=== PATIENT | female | born 1970 | race Caucasian/White ===

== ENCOUNTER 2016-09-10 13:29 | Inpatient (IN) | payer OTHER ==
--- NOTE | 2016-09-10 14:25 | PROVIDER DOCUMENTATION ---
HPI-Respiratory General - General Source: patient, family, EMS - History of Present Illness-Resp Quality of Pain: reports: none Severity in ED: reports: moderate Onset/Duration: reports: 3 days ago Timing: reports: still present Cough Quality/Degree: reports: no cough Episode Frequency: occasional episodes Current Respiratory Medication Therapy: Initiated see nurses note Modifying Factors: improves with: nothing Associated Symptoms: reports: shortness of breath. denies: cough Similar Symptoms Previously?: No Recently seen or treated by another doctor?: Yes <Malvin Campos - Last Filed: 09/10/16 17:26> <Idalia Blancas - Last Filed: 09/10/16 18:13> - General Chief Complaint: Shortness of Breath Stated Complaint: SOB, sore throat Time Seen by Provider: 09/10/16 13:56 Allergies/Adverse Reactions: Patient Allergies Allergy/AdvReac Type Severity Reaction Status Date / Time clarithromycin [From Biaxin] AdvReac RASH Verified 09/10/16 13:48 meloxicam AdvReac Unknown Verified 09/10/16 13:48 Sulfa (Sulfonamide AdvReac RASH Verified 09/10/16 13:48 Antibiotics) Home Medications: Home Medication List Medication Instructions Recorded Confirmed Last Taken Type Albuterol [Albuterol Neb] 2.5 mg INH [id number] PRN 04/29/16 09/10/16 05/28/16 21: 00 History 2.5 MG Aspirin [Aspir-Low] 81 mg PO DAILY 04/29/16 09/10/16 09/10/16 History Carbamazepine 400 mg PO BID 04/29/16 09/10/16 09/10/16 History Cholecalciferol (Vit D3) [Vitamin 1 cap PO DAILY 04/29/16 09/10/16 09/10/16 History D] Citalopram Hydrobromide 20 mg PO DAILY 04/29/16 09/10/16 09/10/16 History [Citalopram HBr] Diazepam 5 mg PO QHS 04/29/16 09/10/16 09/09/16 History Divalproex Sodium [Depakote ER] 2 tab PO BID 04/29/16 09/10/16 09/10/16 History Fluticasone 50 Mcg Nasal [place] 1 - 2 spray PIOTR DAILY 04/29/16 09/10/16 09/10/16 History [Flonase] LISINOpril [Prinivil] 5 mg PO DAILY 04/29/16 09/10/16 09/10/16 History Metformin HCl [Fortamet] 500 mg PO DAILY 04/29/16 09/10/16 09/10/16 History Montelukast Sodium 1 tab PO DAILY 04/29/16 09/10/16 09/10/16 History Omeprazole 40 mg PO DAILY 04/29/16 09/10/16 09/10/16 History Amlodipine [Norvasc] 5 mg PO DAILY #30 tablet 05/31/16 09/10/16 09/10/16 Rx Levothyroxine [Synthroid] 25 microgm PO DAILY@0700 #30 tablet 05/31/16 09/10/16 09/10/16 Rx Polyethylene Glycol 3350 [Miralax] 17 gm PO DAILY 05/31/16 09/10/16 09/10/16 History Sucralfate [Carafate Liquid] 1 gm PO Q6H #14 oz 05/31/16 09/10/16 09/10/16 Rx Simvastatin 20 mg PO HS 09/10/16 09/10/16 09/08/16 20:00 History - History of Present Illness-Resp Nature of Presenting Problem: Pt is a 45 yof with mild MR that is able to answer some questions appropriately no help from family.Family is at bedside and reports that pt has been sob x 2-3 days. Reports that pt has dyspnea on exertion and that her o2 sat drops. pt has never been diagnosed with asthma or copd but takes daily breathing treatments. pt has a 1 inch in diameter spot on her lung that is being followed by her doctor. Hx of bronchitis and pneumonia. Family also reports pt has dysuria upon urination. (Malvin Campos) Review of Systems - Adult - REVIEW OF SYSTEMS - ADULT Constitutional: denies: chills, fever, fatique Eyes: reports: no symptoms reported Ears, Nose, Mouth & Throat: reports: no symptoms reported Cardiovascular: denies: chest pain, irregular heart rate, poor circulation, PND , syncope Respiratory: reports: dyspnea on exertion, shortness of breath. denies: cough, pleurisy Gastrointestinal: denies: abdominal pain, diarrhea, nausea, vomiting Genitourinary: reports: dysuria. denies: flank pain, frequent UTI's, hematuria Musculoskeletal: reports: no symptoms reported Integumentary: reports: no symptoms reported Neurological: reports: no symptoms reported Psychiatric: reports: no symptoms reported Endocrine: reports: no symptoms reported Hematologic/Lymphatic: reports: no symptoms reported Allergic/Immunologic: reports: no symptoms reported All Other Systems: Reviewed and Negative <Malvin Campos - Last Filed: 09/10/16 17:26> Past History - Adult - PAST MEDICAL HISTORY-ADULT Review of Records: reports: Nursing Assessment Review, Medications Reviewed Major Childhood Illnesses: reports: denies history Cardiovascular: reports: HTN Respiratory: reports: asthma Gastrointestinal: reports: GERD Obstetrical/Gynecological: reports: denies history Genitourinary: reports: denies history Musculoskeletal: reports: denies history Neurological: reports: denies history Endocrine/Immune: reports: Diabetes, thyroid disorder (hypo) Other Conditions: reports: denies history - IMMUNIZATION STATUS Childhood Immunizations: See Nurse Assessment Flu Vaccine: See Nurse Assessment - FAMILY HISTORY Family History: reviewed, not pertinent - SOCIAL HISTORY Smoking: denies Substance Use: none/never Alcohol Use Frequency: never <Malvin Campos - Last Filed: 09/10/16 17:26> Physical Exam-General - PHYSICAL EXAM-ADULT Initial Vital Signs Reviewed: Yes - CONSTITUTIONAL General Appearance: appears well, alert, no apparent distress - EYES Eyes: PERRL/EOMI - HEAD, EARS, NOSE, MOUTH & THROAT HENMT: moist mucous membranes, normal ENT inspection, TMs normal, pharynx normal - RESPIRATORY Respiratory: chest non-tender, lungs clear, normal breath sounds, no pleuratic chest pain, no respiratory distress, no accessory muscle use - CARDIOVASCULAR Cardiovascular: regular rate, rhythm, systolic murmur - GASTROINTESTINAL (ABDOMEN) Abdominal Exam: normal bowel sounds, non tender, soft, no organomegaly, no pulsatile mass - LYMPHATIC Lymphatic: no adenopathy - MUSCULOSKELETAL Back Exam: normal inspection, no CVA tenderness, no vertebral tenderness Extremity: normal range of motion, non-tender, normal gait - SKIN Integumentary: normal color, normal turgor, warm/dry - PSYCHIATRIC Psych/Mental Status: normal mood/affect, normal thought content, normal thought process, oriented x 3 <Malvin Campos - Last Filed: 09/10/16 17:26> Progress - EKG 1 Time of EKG reading by physician:: 15:02 EKG Read and Signed by:: Ivan Lundberg EKG Interpretation (*Must complete 3 of following elements*): Abnormal (T wave abnormality consider Anterior ischemia) Rate: 84 Rhythm: nsr [place]: normal QRS: RBB (incomplete) 2 Time of EKG reading by physician:: 17:03 EKG Read and Signed by:: Ivan Lundberg EKG Interpretation (*Must complete 3 of following elements*): Abnormal Rate: 84 Rhythm: nsr [place]: normal QRS: RBB (incomplete) AR Interval: normal <CamposMalvin - Last Filed: 09/10/16 17:26> - XRAY 1 XRAY Study: other (neck) Impression: See EMR Report (Questionable minimal precervical soft tissue swelling. If clinical suspicion persists a CT of the neck with contrast is recommended. -per Dr. Mendoza) 2 XRAY Study: Chest Impression: See EMR Report (No change, per Dr. Mendoza) - CT/MRI 1 CT Study: Neck Impression: See EMR Report (1. Airway is patent. No soft tissue mass or fluid collection seen. 2. No adenopathy. 3. Heterogeneous thyroid with mildly prominent left lobe and a 1.5 cm calcified dominant nodule on the left. -per Dr. Russell) - CONSULTS/PCP/HOSPITALIST Notification #1 *Consult/PCP/Hospitalist*: Dr. Jimenez Time Discussed: 17:30 Reason/Comments: hyperkalemia, elevated troponin Consult Disposition: other (She doesn't meet criteria to transfer to ; admit here and treat hyperkalemia.) #2 Consult: Dr. Jorge Time Discussed: 18:00 Reason/Comments: hyperkalemia, elevated troponin Consult Disposition: Admit <Idalia Blancas - Last Filed: 09/10/16 18:13> - PLAN OF CARE/RESULTS Progress/Plan/Lab Results: Orders Category Date Time Status CHEST-2 VIEWS [RAD] Stat Exams 09/10/16 14:04 Ordered NECK AP AND/OR LAT SOFT TISSUE [RAD] Stat Exams 09/10/16 14:18 Ordered CBC WITH ELECTRONIC DIFF [HEME] Stat Lab 09/10/16 14:04 Uncollected CK PROFILE [SP CHEM] Stat Lab 09/10/16 14:04 Uncollected COMPREHENSIVE METABOLIC PANEL [CHEM] Stat Lab 09/10/16 14:04 Uncollected D-DIMER [CHEM] Stat Lab 09/10/16 14:04 Uncollected MAGNESIUM [CHEM] Stat Lab 09/10/16 14:04 Uncollected PRO B-NATRIURETIC PEPTIDE Stat Lab 09/10/16 14:04 Uncollected PROTIME WITH INR [COAG] Stat Lab 09/10/16 14:04 Uncollected PTT [COAG] Stat Lab 09/10/16 14:04 Uncollected TROPONIN T Stat Lab 09/10/16 14:04 Uncollected URINALYSIS W/POSS RFLX CULT [URINALYSIS] Stat Lab 09/10/16 14:13 Uncollected EKG [EKG] Stat Ther 09/10/16 14:04 Ordered Vital Signs - 24 hr 09/10/16 13:34 Temperature 98.2 F Pulse Rate 98 H Respiratory 18 Rate Blood Pressure 149/77 O2 Sat by Pulse 98 Oximetry Laboratory Tests 09/10/16 09/10/16 09/10/16 14:43 14:43 14:43 WBC 4.52 L RBC 3.53 L Hgb 11.3 L Hct 35.5 L MCV 100.6 H MCH 32.0 H MCHC 31.8 L RDW Std Deviation 12.0 Plt Count 267 MPV 10.8 H Immature Gran % (Auto) 0.0 Neut % (Auto) 47.4 Lymph % (Auto) 40.9 [place] % (Auto) 11.1 H Eos % (Auto) 0.4 Baso % (Auto) 0.2 Immature Gran # (Auto) 0.00 Neut # (Auto) 2.14 Lymph # (Auto) 1.85 [place] # (Auto) 0.50 Eos # (Auto) 0.02 Baso # (Auto) 0.01 PT INR PTT (Actin FS) D-Dimer 0.11 Specimen Type Sample Site pH pCO2 pO2 HCO3 Base Excess Oxyhemoglobin ABG O2 Sat (Calculated) ABG O2 Saturation ABG Carboxyhemoglobin ABG Methemoglobin Ryan Test A-a O2 Difference Total Hemoglobin Lactate Liter Flow Blood Gas Modality FiO2 % Sodium 138 Potassium 5.8 H Chloride 95 L Carbon Dioxide 32 Anion Gap 11 BUN 38 H Creatinine 0.7 Estimated GFR/1.73 m2 > 60 BUN/Creatinine Ratio 54 Glucose 98 Calculated Osmolality 285 Calcium 9.6 Magnesium 2.1 Total Bilirubin 0.11 L AST 15 ALT 10 Alkaline Phosphatase 58 Creatine Kinase 65 Troponin T Fke-O-Ihhosrhhtyr Pept Total Protein 6.7 Albumin 3.9 Globulin 2.8 Albumin/Globulin Ratio 1.4 Urine Source Urine Color Urine Turbidity Urine pH Ur Specific [place] Urine Protein Ur Glucose (Stick) Ur Ketones (Stick) Urine Blood Urine Nitrite Urine Bilirubin Urobilinogen Dipstick Urine Leukocytes Urine WBC (Auto) Urine RBC (Auto) U Epithel Cells (Auto) Urine Bacteria (Auto) 09/10/16 09/10/16 09/10/16 14:43 14:43 14:43 WBC RBC Hgb Hct MCV MCH MCHC RDW Std Deviation Plt Count MPV Immature Gran % (Auto) Neut % (Auto) Lymph % (Auto) [place] % (Auto) Eos % (Auto) Baso % (Auto) Immature Gran # (Auto) Neut # (Auto) Lymph # (Auto) [place] # (Auto) Eos # (Auto) Baso # (Auto) PT 9.6 INR 0.91 PTT (Actin FS) 23.5 D-Dimer Specimen Type Sample Site pH pCO2 pO2 HCO3 Base Excess Oxyhemoglobin ABG O2 Sat (Calculated) ABG O2 Saturation ABG Carboxyhemoglobin ABG Methemoglobin Ryan Test A-a O2 Difference Total Hemoglobin Lactate Liter Flow Blood Gas Modality FiO2 % Sodium Potassium Chloride Carbon Dioxide Anion Gap BUN Creatinine Estimated GFR/1.73 m2 BUN/Creatinine Ratio Glucose Calculated Osmolality Calcium Magnesium Total Bilirubin AST ALT Alkaline Phosphatase Creatine Kinase Troponin T 0.165 H Zbv-A-Tvyxwvpqvib Pept 85 Total Protein Albumin Globulin Albumin/Globulin Ratio Urine Source Urine Color Urine Turbidity Urine pH Ur Specific [place] Urine Protein Ur Glucose (Stick) Ur Ketones (Stick) Urine Blood Urine Nitrite Urine Bilirubin Urobilinogen Dipstick Urine Leukocytes Urine WBC (Auto) Urine RBC (Auto) U Epithel Cells (Auto) Urine Bacteria (Auto) 09/10/16 09/10/16 09/10/16 15:13 16:10 16:10 WBC RBC Hgb Hct MCV MCH MCHC RDW Std Deviation Plt Count MPV Immature Gran % (Auto) Neut % (Auto) Lymph % (Auto) [place] % (Auto) Eos % (Auto) Baso % (Auto) Immature Gran # (Auto) Neut # (Auto) Lymph # (Auto) [place] # (Auto) Eos # (Auto) Baso # (Auto) PT INR PTT (Actin FS) D-Dimer Specimen Type Sample Site pH pCO2 pO2 HCO3 Base Excess Oxyhemoglobin ABG O2 Sat (Calculated) ABG O2 Saturation ABG Carboxyhemoglobin ABG Methemoglobin Ryan Test A-a O2 Difference Total Hemoglobin Lactate Liter Flow Blood Gas Modality FiO2 % Sodium Potassium Chloride Carbon Dioxide Anion Gap BUN Creatinine Estimated GFR/1.73 m2 BUN/Creatinine Ratio Glucose Calculated Osmolality Calcium Magnesium Total Bilirubin AST ALT Alkaline Phosphatase Creatine Kinase 69 Troponin T 0.306 H* D Kfw-B-Huicysjerxp Pept Total Protein Albumin Globulin Albumin/Globulin Ratio Urine Source CLEAN CATCH Urine Color YELLOW Urine Turbidity CLEAR Urine pH 7.0 Ur Specific [place] 1.008 Urine Protein 70 A Ur Glucose (Stick) NEGATIVE Ur Ketones (Stick) NEGATIVE Urine Blood NEGATIVE Urine Nitrite NEGATIVE Urine Bilirubin NEGATIVE Urobilinogen Dipstick NORMAL Urine Leukocytes NEGATIVE Urine WBC (Auto) <10 Urine RBC (Auto) <10 U Epithel Cells (Auto) <10 Urine Bacteria (Auto) NEGATIVE 09/10/16 16:34 WBC RBC Hgb Hct MCV MCH MCHC RDW Std Deviation Plt Count MPV Immature Gran % (Auto) Neut % (Auto) Lymph % (Auto) [place] % (Auto) Eos % (Auto) Baso % (Auto) Immature Gran # (Auto) Neut # (Auto) Lymph # (Auto) [place] # (Auto) Eos # (Auto) Baso # (Auto) PT INR PTT (Actin FS) D-Dimer Specimen Type ARTERIAL Sample Site R RADIAL pH 7.37 pCO2 62 H* pO2 82 HCO3 31.8 H Base Excess 8.8 H Oxyhemoglobin 95.0 ABG O2 Sat (Calculated) 14.3 L ABG O2 Saturation 97.9 ABG Carboxyhemoglobin 1.60 ABG Methemoglobin 1.4 Ryan Test YES A-a O2 Difference 40.0 Total Hemoglobin 10.6 L Lactate 1.40 Liter Flow 2.0 Blood Gas Modality [place] FiO2 % 28.0 Sodium Potassium Chloride Carbon Dioxide Anion Gap BUN Creatinine Estimated GFR/1.73 m2 BUN/Creatinine Ratio Glucose Calculated Osmolality Calcium Magnesium Total Bilirubin AST ALT Alkaline Phosphatase Creatine Kinase Troponin T Fag-C-Dviwlllozxm Pept Total Protein Albumin Globulin Albumin/Globulin Ratio Urine Source Urine Color Urine Turbidity Urine pH Ur Specific [place] Urine Protein Ur Glucose (Stick) Ur Ketones (Stick) Urine Blood Urine Nitrite Urine Bilirubin Urobilinogen Dipstick Urine Leukocytes Urine WBC (Auto) Urine RBC (Auto) U Epithel Cells (Auto) Urine Bacteria (Auto) Laboratory Tests 09/10/16 09/10/16 09/10/16 14:43 14:43 14:43 WBC 4.52 L RBC 3.53 L Hgb 11.3 L Hct 35.5 L MCV 100.6 H MCH 32.0 H MCHC 31.8 L RDW Std Deviation 12.0 Plt Count 267 MPV 10.8 H Immature Gran % (Auto) 0.0 Neut % (Auto) 47.4 Lymph % (Auto) 40.9 [place] % (Auto) 11.1 H Eos % (Auto) 0.4 Baso % (Auto) 0.2 Immature Gran # (Auto) 0.00 Neut # (Auto) 2.14 Lymph # (Auto) 1.85 [place] # (Auto) 0.50 Eos # (Auto) 0.02 Baso # (Auto) 0.01 PT INR PTT (Actin FS) D-Dimer 0.11 Specimen Type Sample Site pH pCO2 pO2 HCO3 Base Excess Oxyhemoglobin ABG O2 Sat (Calculated) ABG O2 Saturation ABG Carboxyhemoglobin ABG Methemoglobin Ryan Test A-a O2 Difference Total Hemoglobin Lactate Liter Flow Blood Gas Modality FiO2 % Sodium 138 Potassium 5.8 H Chloride 95 L Carbon Dioxide 32 Anion Gap 11 BUN 38 H Creatinine 0.7 Estimated GFR/1.73 m2 > 60 BUN/Creatinine Ratio 54 Glucose 98 Calculated Osmolality 285 Calcium 9.6 Magnesium 2.1 Total Bilirubin 0.11 L AST 15 ALT 10 Alkaline Phosphatase 58 Creatine Kinase 65 Troponin T Afd-Z-Fclyotdarms Pept Total Protein 6.7 Albumin 3.9 Globulin 2.8 Albumin/Globulin Ratio 1.4 Urine Source Urine Color Urine Turbidity Urine pH Ur Specific [place] Urine Protein Ur Glucose (Stick) Ur Ketones (Stick) Urine Blood Urine Nitrite Urine Bilirubin Urobilinogen Dipstick Urine Leukocytes Urine WBC (Auto) Urine RBC (Auto) U Epithel Cells (Auto) Urine Bacteria (Auto) 09/10/16 09/10/16 09/10/16 14:43 14:43 14:43 WBC RBC Hgb Hct MCV MCH MCHC RDW Std Deviation Plt Count MPV Immature Gran % (Auto) Neut % (Auto) Lymph % (Auto) [place] % (Auto) Eos % (Auto) Baso % (Auto) Immature Gran # (Auto) Neut # (Auto) Lymph # (Auto) [place] # (Auto) Eos # (Auto) Baso # (Auto) PT 9.6 INR 0.91 PTT (Actin FS) 23.5 D-Dimer Specimen Type Sample Site pH pCO2 pO2 HCO3 Base Excess Oxyhemoglobin ABG O2 Sat (Calculated) ABG O2 Saturation ABG Carboxyhemoglobin ABG Methemoglobin Ryan Test A-a O2 Difference Total Hemoglobin Lactate Liter Flow Blood Gas Modality FiO2 % Sodium Potassium Chloride Carbon Dioxide Anion Gap BUN Creatinine Estimated GFR/1.73 m2 BUN/Creatinine Ratio Glucose Calculated Osmolality Calcium Magnesium Total Bilirubin AST ALT Alkaline Phosphatase Creatine Kinase Troponin T 0.165 H Rdd-X-Sygqpcniuwi Pept 85 Total Protein Albumin Globulin Albumin/Globulin Ratio Urine Source Urine Color Urine Turbidity Urine pH Ur Specific [place] Urine Protein Ur Glucose (Stick) Ur Ketones (Stick) Urine Blood Urine Nitrite Urine Bilirubin Urobilinogen Dipstick Urine Leukocytes Urine WBC (Auto) Urine RBC (Auto) U Epithel Cells (Auto) Urine Bacteria (Auto) 09/10/16 09/10/16 09/10/16 15:13 16:10 16:10 WBC RBC Hgb Hct MCV MCH MCHC RDW Std Deviation Plt Count MPV Immature Gran % (Auto) Neut % (Auto) Lymph % (Auto) [place] % (Auto) Eos % (Auto) Baso % (Auto) Immature Gran # (Auto) Neut # (Auto) Lymph # (Auto) [place] # (Auto) Eos # (Auto) Baso # (Auto) PT INR PTT (Actin FS) D-Dimer Specimen Type Sample Site pH pCO2 pO2 HCO3 Base Excess Oxyhemoglobin ABG O2 Sat (Calculated) ABG O2 Saturation ABG Carboxyhemoglobin ABG Methemoglobin Ryan Test A-a O2 Difference Total Hemoglobin Lactate Liter Flow Blood Gas Modality FiO2 % Sodium Potassium 6.2 H* Chloride Carbon Dioxide Anion Gap BUN Creatinine Estimated GFR/1.73 m2 BUN/Creatinine Ratio Glucose Calculated Osmolality Calcium Magnesium Total Bilirubin AST ALT Alkaline Phosphatase Creatine Kinase 69 Troponin T 0.306 H* D Pwl-P-Cwpejydemcd Pept Total Protein Albumin Globulin Albumin/Globulin Ratio Urine Source CLEAN CATCH Urine Color YELLOW Urine Turbidity CLEAR Urine pH 7.0 Ur Specific [place] 1.008 Urine Protein 70 A Ur Glucose (Stick) NEGATIVE Ur Ketones (Stick) NEGATIVE Urine Blood NEGATIVE Urine Nitrite NEGATIVE Urine Bilirubin NEGATIVE Urobilinogen Dipstick NORMAL Urine Leukocytes NEGATIVE Urine WBC (Auto) <10 Urine RBC (Auto) <10 U Epithel Cells (Auto) <10 Urine Bacteria (Auto) NEGATIVE 09/10/16 16:34 WBC RBC Hgb Hct MCV MCH MCHC RDW Std Deviation Plt Count MPV Immature Gran % (Auto) Neut % (Auto) Lymph % (Auto) [place] % (Auto) Eos % (Auto) Baso % (Auto) Immature Gran # (Auto) Neut # (Auto) Lymph # (Auto) [place] # (Auto) Eos # (Auto) Baso # (Auto) PT INR PTT (Actin FS) D-Dimer Specimen Type ARTERIAL Sample Site R RADIAL pH 7.37 pCO2 62 H* pO2 82 HCO3 31.8 H Base Excess 8.8 H Oxyhemoglobin 95.0 ABG O2 Sat (Calculated) 14.3 L ABG O2 Saturation 97.9 ABG Carboxyhemoglobin 1.60 ABG Methemoglobin 1.4 Ryan Test YES A-a O2 Difference 40.0 Total Hemoglobin 10.6 L Lactate 1.40 Liter Flow 2.0 Blood Gas Modality [place] FiO2 % 28.0 Sodium Potassium Chloride Carbon Dioxide Anion Gap BUN Creatinine Estimated GFR/1.73 m2 BUN/Creatinine Ratio Glucose Calculated Osmolality Calcium Magnesium Total Bilirubin AST ALT Alkaline Phosphatase Creatine Kinase Troponin T Jjf-D-Dzgsqhlztae Pept Total Protein Albumin Globulin Albumin/Globulin Ratio Urine Source Urine Color Urine Turbidity Urine pH Ur Specific [place] Urine Protein Ur Glucose (Stick) Ur Ketones (Stick) Urine Blood Urine Nitrite Urine Bilirubin Urobilinogen Dipstick Urine Leukocytes Urine WBC (Auto) Urine RBC (Auto) U Epithel Cells (Auto) Urine Bacteria (Auto) (Malvin Campos) Laboratory Tests 09/10/16 09/10/16 09/10/16 14:43 14:43 14:43 WBC 4.52 L RBC 3.53 L Hgb 11.3 L Hct 35.5 L MCV 100.6 H MCH 32.0 H MCHC 31.8 L RDW Std Deviation 12.0 Plt Count 267 MPV 10.8 H Immature Gran % (Auto) 0.0 Neut % (Auto) 47.4 Lymph % (Auto) 40.9 [place] % (Auto) 11.1 H Eos % (Auto) 0.4 Baso % (Auto) 0.2 Immature Gran # (Auto) 0.00 Neut # (Auto) 2.14 Lymph # (Auto) 1.85 [place] # (Auto) 0.50 Eos # (Auto) 0.02 Baso # (Auto) 0.01 PT INR PTT (Actin FS) D-Dimer 0.11 Specimen Type Sample Site pH pCO2 pO2 HCO3 Base Excess Oxyhemoglobin ABG O2 Sat (Calculated) ABG O2 Saturation ABG Carboxyhemoglobin ABG Methemoglobin Ryan Test A-a O2 Difference Total Hemoglobin Lactate Liter Flow Blood Gas Modality FiO2 % Sodium 138 Potassium 5.8 H Chloride 95 L Carbon Dioxide 32 Anion Gap 11 BUN 38 H Creatinine 0.7 Estimated GFR/1.73 m2 > 60 BUN/Creatinine Ratio 54 Glucose 98 Calculated Osmolality 285 Calcium 9.6 Magnesium 2.1 Total Bilirubin 0.11 L AST 15 ALT 10 Alkaline Phosphatase 58 Creatine Kinase 65 Troponin T Ugx-N-Msyzplnbdqi Pept Total Protein 6.7 Albumin 3.9 Globulin 2.8 Albumin/Globulin Ratio 1.4 Urine Source Urine Color Urine Turbidity Urine pH Ur Specific [place] Urine Protein Ur Glucose (Stick) Ur Ketones (Stick) Urine Blood Urine Nitrite Urine Bilirubin Urobilinogen Dipstick Urine Leukocytes Urine WBC (Auto) Urine RBC (Auto) U Epithel Cells (Auto) Urine Bacteria (Auto) 09/10/16 09/10/16 09/10/16 14:43 14:43 14:43 WBC RBC Hgb Hct MCV MCH MCHC RDW Std Deviation Plt Count MPV Immature Gran % (Auto) Neut % (Auto) Lymph % (Auto) [place] % (Auto) Eos % (Auto) Baso % (Auto) Immature Gran # (Auto) Neut # (Auto) Lymph # (Auto) [place] # (Auto) Eos # (Auto) Baso # (Auto) PT 9.6 INR 0.91 PTT (Actin FS) 23.5 D-Dimer Specimen Type Sample Site pH pCO2 pO2 HCO3 Base Excess Oxyhemoglobin ABG O2 Sat (Calculated) ABG O2 Saturation ABG Carboxyhemoglobin ABG Methemoglobin Ryan Test A-a O2 Difference Total Hemoglobin Lactate Liter Flow Blood Gas Modality FiO2 % Sodium Potassium Chloride Carbon Dioxide Anion Gap BUN Creatinine Estimated GFR/1.73 m2 BUN/Creatinine Ratio Glucose Calculated Osmolality Calcium Magnesium Total Bilirubin AST ALT Alkaline Phosphatase Creatine Kinase Troponin T 0.165 H Eee-V-Jykgwrxlvml Pept 85 Total Protein Albumin Globulin Albumin/Globulin Ratio Urine Source Urine Color Urine Turbidity Urine pH Ur Specific [place] Urine Protein Ur Glucose (Stick) Ur Ketones (Stick) Urine Blood Urine Nitrite Urine Bilirubin Urobilinogen Dipstick Urine Leukocytes Urine WBC (Auto) Urine RBC (Auto) U Epithel Cells (Auto) Urine Bacteria (Auto) 09/10/16 09/10/16 09/10/16 15:13 16:10 16:10 WBC RBC Hgb Hct MCV MCH MCHC RDW Std Deviation Plt Count MPV Immature Gran % (Auto) Neut % (Auto) Lymph % (Auto) [place] % (Auto) Eos % (Auto) Baso % (Auto) Immature Gran # (Auto) Neut # (Auto) Lymph # (Auto) [place] # (Auto) Eos # (Auto) Baso # (Auto) PT INR PTT (Actin FS) D-Dimer Specimen Type Sample Site pH pCO2 pO2 HCO3 Base Excess Oxyhemoglobin ABG O2 Sat (Calculated) ABG O2 Saturation ABG Carboxyhemoglobin ABG Methemoglobin Ryan Test A-a O2 Difference Total Hemoglobin Lactate Liter Flow Blood Gas Modality FiO2 % Sodium Potassium 6.2 H* Chloride Carbon Dioxide Anion Gap BUN Creatinine Estimated GFR/1.73 m2 BUN/Creatinine Ratio Glucose Calculated Osmolality Calcium Magnesium Total Bilirubin AST ALT Alkaline Phosphatase Creatine Kinase 69 Troponin T 0.306 H* D Cgw-L-Dyocqfadapx Pept Total Protein Albumin Globulin Albumin/Globulin Ratio Urine Source CLEAN CATCH Urine Color YELLOW Urine Turbidity CLEAR Urine pH 7.0 Ur Specific [place] 1.008 Urine Protein 70 A Ur Glucose (Stick) NEGATIVE Ur Ketones (Stick) NEGATIVE Urine Blood NEGATIVE Urine Nitrite NEGATIVE Urine Bilirubin NEGATIVE Urobilinogen Dipstick NORMAL Urine Leukocytes NEGATIVE Urine WBC (Auto) <10 Urine RBC (Auto) <10 U Epithel Cells (Auto) <10 Urine Bacteria (Auto) NEGATIVE 09/10/16 16:34 WBC RBC Hgb Hct MCV MCH MCHC RDW Std Deviation Plt Count MPV Immature Gran % (Auto) Neut % (Auto) Lymph % (Auto) [place] % (Auto) Eos % (Auto) Baso % (Auto) Immature Gran # (Auto) Neut # (Auto) Lymph # (Auto) [place] # (Auto) Eos # (Auto) Baso # (Auto) PT INR PTT (Actin FS) D-Dimer Specimen Type ARTERIAL Sample Site R RADIAL pH 7.37 pCO2 62 H* pO2 82 HCO3 31.8 H Base Excess 8.8 H Oxyhemoglobin 95.0 ABG O2 Sat (Calculated) 14.3 L ABG O2 Saturation 97.9 ABG Carboxyhemoglobin 1.60 ABG Methemoglobin 1.4 Ryan Test YES A-a O2 Difference 40.0 Total Hemoglobin 10.6 L Lactate 1.40 Liter Flow 2.0 Blood Gas Modality [place] FiO2 % 28.0 Sodium Potassium Chloride Carbon Dioxide Anion Gap BUN Creatinine Estimated GFR/1.73 m2 BUN/Creatinine Ratio Glucose Calculated Osmolality Calcium Magnesium Total Bilirubin AST ALT Alkaline Phosphatase Creatine Kinase Troponin T Wni-D-Zwqdjeskmif Pept Total Protein Albumin Globulin Albumin/Globulin Ratio Urine Source Urine Color Urine Turbidity Urine pH Ur Specific [place] Urine Protein Ur Glucose (Stick) Ur Ketones (Stick) Urine Blood Urine Nitrite Urine Bilirubin Urobilinogen Dipstick Urine Leukocytes Urine WBC (Auto) Urine RBC (Auto) U Epithel Cells (Auto) Urine Bacteria (Auto) Orders Category Date Time Status Saline Loc NOW Care 09/10/16 15:56 Active CHEST-2 VIEWS [RAD] Stat Exams 09/10/16 14:04 Completed NECK AP AND/OR LAT SOFT TISSUE [RAD] Stat Exams 09/10/16 14:18 Completed NECK W/CONTRAST [CT] Stat Exams 09/10/16 15:56 Taken ABG [RESP] Routine Lab 09/10/16 16:34 Completed CBC WITH ELECTRONIC DIFF [HEME] Stat Lab 09/10/16 14:43 Completed CK PROFILE [SP CHEM] Stat Lab 09/10/16 14:43 Completed CK PROFILE [SP CHEM] Stat Lab 09/10/16 16:10 Completed COMPREHENSIVE METABOLIC PANEL [CHEM] Stat Lab 09/10/16 14:43 Completed D-DIMER [CHEM] Stat Lab 09/10/16 14:43 Completed MAGNESIUM [CHEM] Stat Lab 09/10/16 14:43 Completed POTASSIUM [CHEM] Stat Lab 09/10/16 16:10 Completed PRO B-NATRIURETIC PEPTIDE Stat Lab 09/10/16 14:43 Completed PROTIME WITH INR [COAG] Stat Lab 09/10/16 14:43 Completed PTT [COAG] Stat Lab 09/10/16 14:43 Completed TROPONIN T Stat Lab 09/10/16 14:43 Completed TROPONIN T Stat Lab 09/10/16 16:10 Completed URINALYSIS W/POSS RFLX CULT [URINALYSIS] Stat Lab 09/10/16 15:13 Completed 0.9% Sodium Chloride Inj [Ns] 1,000 ml Med 09/10/16 15:56 Discontinued IV 999 mls/hr Albuterol 0.5% INH Conc [Albuterol 0.5% INH Conc For Med 09/10/16 17:08 Discontinued Hyperkalemia] 25 mg INH NOW ONE Aspirin Med 09/10/16 16:17 Discontinued 325 mg PO NOW ONE Sodium Polystyrene [Kayexalate] Med 09/10/16 17:08 Discontinued 15 gm PO NOW ONE Aerosol Treatments Routine Oth 09/10/16 17:08 Completed Aerosol Treatments Stat Oth 09/10/16 17:08 Completed EKG [EKG] Stat Ther 09/10/16 14:04 Draft EKG [EKG] Stat Ther 09/10/16 16:40 Ordered Vital Signs Temp Pulse Resp BP Pulse Ox 09/10/16 17:52 92 H 14 98 09/10/16 13:34 98.2 F 98 H 18 149/77 98 clarithromycin [From Biaxin] Adverse Reaction (Verified 09/10/16 13:48) RASH meloxicam Adverse Reaction (Verified 09/10/16 13:48) Unknown Sulfa (Sulfonamide Antibiotics) Adverse Reaction (Verified 09/10/16 13:48) RASH Albuterol [Albuterol Neb] 2.5 mg INH [id number] PRN 04/29/16 Aspirin [Aspir-Low] 81 mg PO DAILY 04/29/16 Carbamazepine 400 mg PO BID 04/29/16 Cholecalciferol (Vit D3) [Vitamin D] 1 cap PO DAILY 04/29/16 Citalopram Hydrobromide [Citalopram HBr] 20 mg PO DAILY 04/29/16 Diazepam 5 mg PO QHS 04/29/16 Divalproex Sodium [Depakote ER] 2 tab PO BID 04/29/16 Fluticasone 50 Mcg Nasal [place] [Flonase] 1 - 2 spray PIOTR DAILY 04/29/16 LISINOpril [Prinivil] 5 mg PO DAILY 04/29/16 Metformin HCl [Fortamet] 500 mg PO DAILY 04/29/16 Montelukast Sodium 1 tab PO DAILY 04/29/16 Omeprazole 40 mg PO DAILY 04/29/16 Amlodipine [Norvasc] 5 mg PO DAILY #30 tablet 05/31/16 Levothyroxine [Synthroid] 25 microgm PO DAILY@0700 #30 tablet 05/31/16 Polyethylene Glycol 3350 [Miralax] 17 gm PO DAILY 05/31/16 Sucralfate [Carafate Liquid] 1 gm PO Q6H #14 oz 05/31/16 Simvastatin 20 mg PO HS 09/10/16 I&O 09/09/16 09/10/16 09/11/16 06:59 06:59 06:59 Output Total 50 Balance -50 Laboratory 09/10/16 09/10/16 09/10/16 16:34 16:10 16:10 WBC RBC Hgb Hct MCV MCH MCHC RDW Std Deviation Plt Count MPV Immature Gran % (Auto) Neut % (Auto) Lymph % (Auto) [place] % (Auto) Eos % (Auto) Baso % (Auto) Immature Gran # (Auto) Neut # (Auto) Lymph # (Auto) [place] # (Auto) Eos # (Auto) Baso # (Auto) PT INR PTT (Actin FS) D-Dimer Specimen Type ARTERIAL Sample Site R RADIAL pH 7.37 pCO2 62 H* pO2 82 HCO3 31.8 H Base Excess 8.8 H Oxyhemoglobin 95.0 ABG O2 Sat (Calculated) 14.3 L ABG O2 Saturation 97.9 ABG Carboxyhemoglobin 1.60 ABG Methemoglobin 1.4 Ryan Test YES A-a O2 Difference 40.0 Total Hemoglobin 10.6 L Lactate 1.40 Liter Flow 2.0 Blood Gas Modality CANNULA FiO2 % 28.0 Sodium Potassium 6.2 H* Chloride Carbon Dioxide Anion Gap BUN Creatinine Estimated GFR/1.73 m2 BUN/Creatinine Ratio Glucose Calculated Osmolality Calcium Magnesium Total Bilirubin AST ALT Alkaline Phosphatase Creatine Kinase 69 Troponin T 0.306 H* D [id number] Pept Total Protein Albumin Globulin Albumin/Globulin Ratio Urine Source Urine Color Urine Turbidity Urine pH Ur Specific [place] Urine Protein Ur Glucose (Stick) Ur Ketones (Stick) Urine Blood Urine Nitrite Urine Bilirubin Urobilinogen Dipstick Urine Leukocytes Urine WBC (Auto) Urine RBC (Auto) U Epithel Cells (Auto) Urine Bacteria (Auto) 09/10/16 09/10/16 09/10/16 15:13 14:43 14:43 WBC RBC Hgb Hct MCV MCH MCHC RDW Std Deviation Plt Count MPV Immature Gran % (Auto) Neut % (Auto) Lymph % (Auto) [place] % (Auto) Eos % (Auto) Baso % (Auto) Immature Gran # (Auto) Neut # (Auto) Lymph # (Auto) [place] # (Auto) Eos # (Auto) Baso # (Auto) PT 9.6 INR 0.91 PTT (Actin FS) 23.5 D-Dimer Specimen Type Sample Site pH pCO2 pO2 HCO3 Base Excess Oxyhemoglobin ABG O2 Sat (Calculated) ABG O2 Saturation ABG Carboxyhemoglobin ABG Methemoglobin Ryan Test A-a O2 Difference Total Hemoglobin Lactate Liter Flow Blood Gas Modality FiO2 % Sodium Potassium Chloride Carbon Dioxide Anion Gap BUN Creatinine Estimated GFR/1.73 m2 BUN/Creatinine Ratio Glucose Calculated Osmolality Calcium Magnesium Total Bilirubin AST ALT Alkaline Phosphatase Creatine Kinase Troponin T 0.165 H [id number] Pept Total Protein Albumin Globulin Albumin/Globulin Ratio Urine Source CLEAN CATCH Urine Color YELLOW Urine Turbidity CLEAR Urine pH 7.0 Ur Specific [place] 1.008 Urine Protein 70 A Ur Glucose (Stick) NEGATIVE Ur Ketones (Stick) NEGATIVE Urine Blood NEGATIVE Urine Nitrite NEGATIVE Urine Bilirubin NEGATIVE Urobilinogen Dipstick NORMAL Urine Leukocytes NEGATIVE Urine WBC (Auto) <10 Urine RBC (Auto) <10 U Epithel Cells (Auto) <10 Urine Bacteria (Auto) NEGATIVE 09/10/16 09/10/16 09/10/16 14:43 14:43 14:43 WBC RBC Hgb Hct MCV MCH MCHC RDW Std Deviation Plt Count MPV Immature Gran % (Auto) Neut % (Auto) Lymph % (Auto) [place] % (Auto) Eos % (Auto) Baso % (Auto) Immature Gran # (Auto) Neut # (Auto) Lymph # (Auto) [place] # (Auto) Eos # (Auto) Baso # (Auto) PT INR PTT (Actin FS) D-Dimer 0.11 Specimen Type Sample Site pH pCO2 pO2 HCO3 Base Excess Oxyhemoglobin ABG O2 Sat (Calculated) ABG O2 Saturation ABG Carboxyhemoglobin ABG Methemoglobin Ryan Test A-a O2 Difference Total Hemoglobin Lactate Liter Flow Blood Gas Modality FiO2 % Sodium 138 Potassium 5.8 H Chloride 95 L Carbon Dioxide 32 Anion Gap 11 BUN 38 H Creatinine 0.7 Estimated GFR/1.73 m2 > 60 BUN/Creatinine Ratio 54 Glucose 98 Calculated Osmolality 285 Calcium 9.6 Magnesium 2.1 Total Bilirubin 0.11 L AST 15 ALT 10 Alkaline Phosphatase 58 Creatine Kinase 65 Troponin T [id number] Pept 85 Total Protein 6.7 Albumin 3.9 Globulin 2.8 Albumin/Globulin Ratio 1.4 Urine Source Urine Color Urine Turbidity Urine pH Ur Specific [place] Urine Protein Ur Glucose (Stick) Ur Ketones (Stick) Urine Blood Urine Nitrite Urine Bilirubin Urobilinogen Dipstick Urine Leukocytes Urine WBC (Auto) Urine RBC (Auto) U Epithel Cells (Auto) Urine Bacteria (Auto) 09/10/16 14:43 WBC 4.52 L RBC 3.53 L Hgb 11.3 L Hct 35.5 L MCV 100.6 H MCH 32.0 H MCHC 31.8 L RDW Std Deviation 12.0 Plt Count 267 MPV 10.8 H Immature Gran % (Auto) 0.0 Neut % (Auto) 47.4 Lymph % (Auto) 40.9 [place] % (Auto) 11.1 H Eos % (Auto) 0.4 Baso % (Auto) 0.2 Immature Gran # (Auto) 0.00 Neut # (Auto) 2.14 Lymph # (Auto) 1.85 [place] # (Auto) 0.50 Eos # (Auto) 0.02 Baso # (Auto) 0.01 PT INR PTT (Actin FS) D-Dimer Specimen Type Sample Site pH pCO2 pO2 HCO3 Base Excess Oxyhemoglobin ABG O2 Sat (Calculated) ABG O2 Saturation ABG Carboxyhemoglobin ABG Methemoglobin Ryan Test A-a O2 Difference Total Hemoglobin Lactate Liter Flow Blood Gas Modality FiO2 % Sodium Potassium Chloride Carbon Dioxide Anion Gap BUN Creatinine Estimated GFR/1.73 m2 BUN/Creatinine Ratio Glucose Calculated Osmolality Calcium Magnesium Total Bilirubin AST ALT Alkaline Phosphatase Creatine Kinase Troponin T [id number]-Tmbqratnmlh Pept Total Protein Albumin Globulin Albumin/Globulin Ratio Urine Source Urine Color Urine Turbidity Urine pH Ur Specific [place] Urine Protein Ur Glucose (Stick) Ur Ketones (Stick) Urine Blood Urine Nitrite Urine Bilirubin Urobilinogen Dipstick Urine Leukocytes Urine WBC (Auto) Urine RBC (Auto) U Epithel Cells (Auto) Urine Bacteria (Auto) Discussed pt with Dr. Proctor; she agreed with calling job molder for admission or transfer. (Idalia Blancas) Departure <Malvin Campos - Last Filed: 09/10/16 17:26> - Departure Time of Disposition Order: 17:19 Certified Medical Emergency: Emergent <Idalia Blancas - Last Filed: 09/10/16 18:13> - Departure DIAGNOSIS: SOB (shortness of breath), Hyperkalemia, Cardiac enzymes elevated, Hypercapnia , Localized soft tissue swelling, Thyroid nodule Chest pain Qualifiers: Chest pain type: unspecified Qualified Code(s): R07.9 - Chest pain, unspecified Disposition: ADMITTED INPATIENT 09 Condition: Stable Referrals: None,PCP [Primary Care Provider] - Attestation - Scribe Verification/Attestation Scribe:: Malvin Campos Acting as Scribe for:: Idalia Blancas Scribe documention review:: This chart was documented by a scribe and accurately reflects the service the provider performed and the decisions made by the provider. <Malvin Campos - Last Filed: 09/10/16 17:26> Physician Attestation
[2016-09-10 14:50] LABS: MANUAL DIFF NEEDED? NO
[2016-09-10 14:56] LABS: BASO% 0.2 % (0.0-0.8); EOS# 0.02 X1000 (0.0-0.7); EOS% 0.4 % (0.0-10.0); HEMATOCRIT 35.5 % (37.0-47.0); HEMOGLOBIN 11.3 g/dL (12.0-16.0); LYMPH# 1.85 X1000 (1.2-3.4); LYMPH% 40.9 % (20.5-51.1); MCHC 31.8 g/dL (33-37); MCV 100.6 FL (81-99); MONO% 11.1 % (1.7-9.3); MPV 10.8 FL (7.4-10.4); NEUT% 47.4 % (42.2-75.2); PLT 267 X1000 (130-400); RBC 3.53 XMIL (4.2-5.4)
--- NOTE | 2016-09-10 15:09 | Diag Imaging Result Document ---
PROCEDURE NAME: NECK AP AND/OR LAT SOFT TISSUE - 09/10/2016 SOFT TISSUE NECK, TWO VIEWS: FINDINGS: Questionable minimal precervical soft tissue swelling at C1 and 2. The airway is distended. The epiglottis is not enlarged. No foreign body. IMPRESSION: Questionable minimal precervical soft tissue swelling. If clinical suspicion persists a CT of the neck with contrast is recommended.
--- NOTE | 2016-09-10 15:12 | Diag Imaging Result Document ---
PROCEDURE NAME: CHEST-2 VIEWS - 09/10/2016 FRONTAL AND LATERAL CHEST, TWO VIEWS: COMPARISON: 05/29/2016. FINDINGS: Poor inspiratory effort. There is persistent atelectasis or scarring in the right base. I believe there is a tiny right effusion. The heart is mildly enlarged. The vessels are not distended. No consolidation. IMPRESSION: Stable chest.
[2016-09-10 15:13] LABS: AGAP 11; ALBUMIN 3.9 g/dL (3.5-5.0); ALKALINE PHOSPHATASE 58 U/L (32-104); BUN 38 mg/dL (8-22); CALCIUM 9.6 mg/dL (8.8-10.2); CHLORIDE 95 mmol/L (98-107); CK PROFILE 65 U/L (24-173); COSMO 285; GOT 15 U/L (10-30); GPT 10 U/L (10-36); MAGNESIUM 2.1 mg/dL (1.5-2.7); POTASSIUM 5.8 mmol/L (3.5-5.1); SODIUM 138 mmol/L (136-145); TCO2 32 mmol/L (25-35); TOTAL BILIRUBIN 0.11 mg/dL (0.20-1.00); TOTAL PROTEIN 6.7 g/dL (6.3-8.3)
[2016-09-10 15:15] LABS: INR 0.91; PROTIME 9.6 Seconds (9.2-11.7); PTT 23.5 Seconds (22.0-36.0)
[2016-09-10 15:22] LABS: URINE CULTURE NEEDED? NO; URINE MICRO REVIEW NEEDED? NO; URINE SOURCE CLEAN CATCH
[2016-09-10 15:31] LABS: BILIRUBIN URINE NEGATIVE (NEGATIVE); BLOOD URINE NEGATIVE (NEGATIVE); COLOR YELLOW; GLUCOSE URINE NEGATIVE (NEGATIVE); LEUKOCYTES URINE NEGATIVE (NEGATIVE); NITRITE URINE NEGATIVE (NEGATIVE); PROTEIN URINE 70 mg/dL (NEGATIVE); SP GRAVITY URINE 1.008; TURBIDITY URINE CLEAR (CLEAR); UROBILINOGEN URINE NORMAL (NORMAL)
[2016-09-10 15:33] LABS: UR EPITHELIAL CELLS <10 /HPF (<10); URINE BACTERIA NEGATIVE /HPF; URINE RBC <10 /HPF (<10); URINE WBC <10 /HPF (<10)
--- NOTE | 2016-09-10 15:38 | EKG Report ---
Test Performed on : 09/10/2016 3:02:06 PM Test Reason : Chest Pain Blood Pressure : / mmHG Vent. Rate : 084 BPM Atrial Rate : 084 BPM P-R Int : 144 ms QRS Dur : 110 ms QT Int : 366 ms P-R-T Axes : 015 027 002 degrees QTc Int : 432 ms Normal sinus rhythm. Incomplete right bundle branch block T wave abnormality, consider anterior ischemia Abnormal ECG When compared with ECG of 31-MAY-2016 08:34, Vent. rate has decreased BY [address] no longer depressed in Anterior leads Unconfirmed Result
[2016-09-10] MEDS ORDERED: NS 1,000 ML IV ONE (15:56)
[2016-09-10] MEDS ORDERED: ASPIRIN PO ONE (16:17)
[2016-09-10 16:44] LABS: ALLEN TEST YES; BE 8.8 mmoll (-3.0-3.0); BLOOD TYPE ARTERIAL; DRAW SITE R RADIAL; METHB 1.4 % (0.0-1.5); O2(CT) 14.3 mL/dL (15.0-23.0); PO2(98.6) 82 mmHg (60-100); SAMPLE BLOOD; SAO2 97.9 % (95.0-100.0); THB 10.6 g/dL (11.5-17.4); pH(98.6) 7.37 (7.35-7.45)
[2016-09-10 16:46] LABS: MODALITY CANNULA; PCO2(98.6) 62 mmHg (35-45)
[2016-09-10 17:06] LABS: POTASSIUM 6.2 mmol/L (3.5-5.1)
[2016-09-10] MEDS ORDERED: ALBUTEROL 0.5% INH CONC FOR HYPERKALEMIA INH ONE (17:08)
[2016-09-10] MEDS ORDERED: KAYEXALATE PO ONE (17:08)
[2016-09-10] MEDS ORDERED: D50W SYRINGE IV ONE (19:01)
[2016-09-10] MEDS ORDERED: CALCIUM GLUCONATE 2 GM in NS 100 ML IV ONE (19:01)
[2016-09-10] MEDS ORDERED: HUMULIN R SUBQ ONE (19:02)
[2016-09-10] MEDS ORDERED: DUONEB (A & A) INH PRN (19:11)
[2016-09-10] MEDS: DUONEB (A & A) INH SCH ×2 (19:30→23:30)
--- NOTE | 2016-09-10 20:15 | HISTORY AND PHYSICAL ---
PCP: Dr. Partha Lindsey. TAFE LECTURER: Dr. Santiago. CHIEF COMPLAINT: Dyspnea on exertion. HISTORY OF PRESENT ILLNESS: Mrs. Valdivia is an unfortunate 45-year-old female with a history of mental retardation, COPD on home oxygen, hypertension, diabetes, GERD, pulmonary nodule who presented with shortness of breath over the past few days. Patient is unable to give any type of medical history given her mental status, family is at the bedside to give a detailed medical history. Patient is for the most part bed and wheelchair-bound but she does get up and try to walk occasionally and has been having worsening shortness of breath with any type of exertion. There has been occasional atypical type chest pain but this has been difficult to quantify. The family also reports that she has occasional difficulty with swallowing food and chokes on occasion. There has been no fevers or chills. No cough. No congestion. No lower extremity edema. No apparent orthopnea. Her mother checks her oxygen saturation often and has been in the low 90s over the past few days. They brought her here to the hospital for further evaluation. In the hospital she had an EKG done which shows normal sinus rhythm/sinus tachycardia and she has T- wave inversions in the anterior leads which have slightly worsened since previous EKGs. Initial lab work was unremarkable with the exception of mild hyperkalemia and mildly elevated troponin, however recheck of her potassium and troponin showed critical potassium of 6.2 and a critical troponin 0.306. Chest x-ray that was done and did show stable chest with a tiny right effusion and persistent atelectasis in the right lung base. No acute findings were noted. The patient was apparently also complaining of some throat fullness and soft tissue neck was done which showed precervical soft tissue swelling and recommended CT for follow up. A CT with contrast was done and has been read as nothing acute. She has been treated for her hyperkalemia and we are going to admit her now to the CICU for further treatment and evaluation of her elevated troponins. PAST MEDICAL HISTORY: 1. MR. 2. Diabetes mellitus. 3. Hypertension. 4. GERD. 5. COPD on chronic O2. 6. Seizures well controlled with medication. 7. Hypothyroidism. 8. Hyperlipidemia. SURGICAL HISTORY: Hernia repair, 2 sinus surgeries and bilateral cataract surgery. SOCIAL HISTORY: There is no tobacco, alcohol or drug use. She lives at home with her mother. She does not have any children and she is on disability. FAMILY HISTORY: Significant for hypertension, skin cancer, CVA and type 2 diabetes. ALLERGIES: To clarithromycin, Mobic and sulfa. HOME MEDICATIONS: Albuterol 4 times a day, aspirin 81 mg daily, carbamazepine 400 mg b.i.d., vitamin D 5000 units daily, citalopram 20 mg daily, Valium 5 mg at bedtime, Depakote ER 1000 mg p.o. b.i.d., Prinivil 5 mg daily, Fortamet 500 mg daily, montelukast 10 mg daily, omeprazole 40 mg daily, MiraLAX 17 g p.o. daily, simvastatin 20 mg p.o. at bedtime, Norvasc 5 mg daily, Synthroid 25 mcg daily, Carafate 1 g 4 times a day. REVIEW OF SYSTEMS: Unable to obtain. PHYSICAL EXAMINATION: VITAL SIGNS: Blood pressure is 149/77, heart rate 78, respiratory rate 18, temperature is 98.2 degrees, pulse oximetry 98% on 2 L. GENERAL: This is a well-developed, well-nourished female lying in hospital bed. No acute distress. NEUROLOGIC: The patient follows commands but is unable to really verbalize anything. No focal deficits noted. HEENT: Head is atraumatic, normocephalic. Pupils equal, round, reactive to light. Oral mucosa is moist. Trachea is midline. CHEST: Overall clear to auscultation bilaterally. Perhaps decreased at the bases. CARDIOVASCULAR: Tachycardic but regular. S1-S2 is noted. No murmurs. GI: Soft, nondistended, nontender. Bowel sounds positive. EXTREMITIES: Without edema, clubbing, cyanosis. Pulses palpable bilaterally. DIAGNOSTIC DATA: Sodium 138, potassium 6.2, chloride 95, CO2 32, anion gap 11, BUN 38, creatinine 0.7, glucose 98, calcium 9.6, magnesium 2.1, bilirubin 0.11, AST 15, ALT 10, alkaline phosphatase 58, troponin 0.306, proBNP 85, CK 69, albumin 3.9. WBC 4.52, hemoglobin 11.3, hematocrit 35, platelet count 267,000, INR is 0.91, D-dimer is 0.11. ABG on 2 L pH 7.37, CO2 62, O2 82, bicarb 31.8. UA is negative for acute process. ASSESSMENT AND PLAN: 1. Acute on chronic respiratory failure: Multifactorial secondary to chronic obstructive pulmonary disease, chronically elevated right hemidiaphragm, asthma and possibly acute event of either non-ST segment elevation myocardial infarction, possibly a pulmonary embolism or other event that is causing her troponin to be elevated. We are going to treat her for MD for now. We will start her on Lovenox full dose 1 mg/kg b.i.d., continue aspirin, monitor telemetry and trend her cardiac enzymes. We will also consult with Cardiology. She has recently had an echocardiogram but we will defer to cardiology on whether or not to order another one. 2. Hyperkalemia: She is not acidotic. She is on lisinopril which could certainly cause her K to go up. We will stop lisinopril, treat her K and continue to follow BMP throughout the night and into tomorrow. 3. Non-ST segment elevation myocardial infarction: Please see #1. 4. Chronic obstructive pulmonary disease: She does not appear to be in exacerbation, will continue oxygen, nebulizers and aggressive pulmonary toilet. 5. Gastroesophageal reflux disease: Chronic and stable, continue home medications. 6. Hypertension: Continue her Norvasc, hold her lisinopril given hyperkalemia. 7. Diabetes mellitus: Will hold her metformin and add pattern sugar sliding scale insulin, check hemoglobin A1c. 8. Pulmonary nodule: Dr. Santiago has been consulted, statement has been made in the past that she will need a biopsy, we will defer this to the family and Dr. Santiago. 9. Possible chronic aspiration: We are going to put in a speech consult and check into the possibility of chronic aspiration causing her respiratory symptoms. 10. Seizure disorder: This is controlled well with her medications. We are going to check levels and continue her home medications. 11. Deep vein thrombosis prophylaxis provided with Lovenox. Gastrointestinal prophylaxis with her home PPI. Further recommendations to follow. Dictated by STEVE Canela for Kenny Jorge MD
[2016-09-10] MEDS: HUMALOG SUBQ SCH (21:22)
[2016-09-10] MEDS: LOVENOX SUBQ SCH (21:23)
[2016-09-10] MEDS: LIPITOR PO SCH (23:02)
[2016-09-10 23:29] LABS: CALCIUM 9.6 mg/dL (8.8-10.2); POTASSIUM 4.9 mmol/L (3.5-5.1)
[2016-09-10] MEDS ORDERED: MORPHINE IV PRN (23:55)
[2016-09-10] MEDS: NITROGLYCERIN SL PRN (23:57)
[2016-09-11] MEDS ORDERED: MORPHINE IV ONE (00:01)
[2016-09-11] MEDS: NITROGLYCERIN SL PRN (00:02)
[2016-09-11] MEDS ORDERED: ALBUTEROL NEB INH PRN (00:04)
[2016-09-11] MEDS: CARAFATE LIQUID PO SCH ×5 (00:30→23:21)
[2016-09-11] MEDS: TEGRETOL PO SCH ×3 (00:32→23:39)
[2016-09-11] MEDS: VALIUM PO SCH ×2 (00:32→20:45)
[2016-09-11] MEDS: DEPAKOTE ER PO SCH ×3 (00:32→20:46)
[2016-09-11 01:25] LABS: AGAP 14; BUN 33 mg/dL (8-22); CALCIUM 9.5 mg/dL (8.8-10.2); CHLORIDE 98 mmol/L (98-107); CK PROFILE 70 U/L (24-173); COSMO 289; POTASSIUM 4.8 mmol/L (3.5-5.1); SODIUM 141 mmol/L (136-145); TCO2 29 mmol/L (25-35)
[2016-09-11 01:26] LABS: HEMOGLOBIN A1C 5.1 % (4.8-6.0)
[2016-09-11] MEDS: DUONEB (A & A) INH SCH ×6 (03:30→23:27)
--- NOTE | 2016-09-11 05:34 | EKG Report ---
Test Performed on : 09/10/2016 5:03:49 PM Test Reason : CP Blood Pressure : / mmHG Vent. Rate : 084 BPM Atrial Rate : 084 BPM P-R Int : 140 ms QRS Dur : 110 ms QT Int : 386 ms P-R-T Axes : 016 017 004 degrees QTc Int : 456 ms Normal sinus rhythm. Incomplete right bundle branch block Borderline ECG When compared with ECG of 10-SEP-2016 15:02, (Unconfirmed) No significant change was found Unconfirmed Result
[2016-09-11 07:24] LABS: HEMATOCRIT 31.5 % (37.0-47.0); HEMOGLOBIN 9.9 g/dL (12.0-16.0); MCH 32.1 PG (27-31); MCHC 31.4 g/dL (33-37); MCV 102.3 FL (81-99); RBC 3.08 XMIL (4.2-5.4)
[2016-09-11] MEDS: HUMALOG SUBQ SCH ×4 (08:11→20:49)
[2016-09-11] MEDS: SYNTHROID PO SCH (08:12)
[2016-09-11 08:13] LABS: BUN 33 mg/dL (8-22)
--- NOTE | 2016-09-11 08:20 | Diag Imaging Result Document ---
PROCEDURE NAME: NECK W/CONTRAST - 09/10/2016 CT NECK WITH INTRAVENOUS CONTRAST: A CT dose reduction protocol was used. COMPARISON: Previous neck x-rays. FINDINGS: There is no mass or adenopathy. Airways are patent. Vessels are clear. There is a small 1.2 cm nodule in the left lobe of the thyroid gland. Bony structures are intact. IMPRESSION: No acute disease. [facility]
[2016-09-11 09:34] LABS: AGAP 15; CALCIUM 9.5 mg/dL (8.8-10.2); CHLORIDE 97 mmol/L (98-107); COSMO 292; HDL 54 mg/dL (45-65); POTASSIUM 5.2 mmol/L (3.5-5.1); SODIUM 143 mmol/L (136-145); TCO2 31 mmol/L (25-35); TRIGLYCERIDES 403 mg/dL (35-135)
[2016-09-11] MEDS: LOPRESSOR PO SCH ×2 (10:24→18:18)
--- NOTE | 2016-09-11 10:59 | CONSULTATION ---
DATE OF CONSULTATION: 09/11/2016 IMPRESSION: 1. Chest discomfort vaguely described but predominantly atypical for myocardial ischemia. 2. Prominent systolic murmur, left upper sternal border. Etiology not clear. 3. Abnormal troponin of 0.3. Etiology not clear. 4. Developmental delay. 5. Hypertension. 6. Diabetes mellitus type 2. 7. Asthma. 8. Hypothyroidism. 9. History of previous abnormal myocardial perfusion study with mild reversible defect in the past. 10.Chronic tendency for hypoxemia for which patient receives home oxygen. This has been attributed to hypoventilation. RECOMMENDATIONS: 1. Telemetry observation. 2. Follow up cardiac enzymes. 3. Repeat echocardiography with intravenous agitated saline contrast (bubble) study. 4. Venous Doppler study. 5. Consider cardiac/coronary CT scan. 6. Will pursue noninvasive evaluation initially. Possible pursuit of invasive evaluation was introduced to the patient's mother who is primary caregiver and responsible for medical decision making. 7. Add beta-benji. HISTORY: This 45-year-old white female with a past medical history of developmental delay, hypertension, diabetes mellitus type 2, asthma, chronic home oxygen use, and hypothyroidism was admitted to the emergency room for evaluation of vague chest discomfort and abnormal troponin of 0.3. The patient is only able to contribute a very limited amount of history due to her developmental delay and limited ability to recall. She initially relates she had some headache that prompted her to come to the emergency room, but after being corrected, she acknowledges some upper chest discomfort which she characterizes very vaguely. Her mother indicates that she has had this tendency for the last several months to have an uncomfortable sensation when she would go to bed at night and lie down. This did not seem to be the case in the afternoon when she would lie on the couch. She actually had her mother prop up the head of her bed as she has a hospital bed. The patient reportedly has had hypoxemia in the past with oxygen saturations as low as in the 70% range. Evaluation by echocardiography was negative for any significant valvular abnormality. The study was apparently technically difficult. She has elevated right hemidiaphragm. She is felt to have a tendency for hypoventilation. She has not tolerated CPAP or BiPAP due to claustrophobia. She has a history of previous mildly abnormal myocardial perfusion study in the past and has been followed by Dr. Philippe Heller. She is a nonsmoker. PAST MEDICAL HISTORY: 1. Developmental delay. 2. Murmur. 3. Seizure disorder. 4. Hypertension. 5. Type 2 diabetes mellitus. 6. Asthma. 7. Hypoventilation. 8. Obesity. 9. Hyperlipidemia. 10.History of lung mass being followed radiographically. 11.History of gastroesophageal reflux. PAST SURGICAL HISTORY: Includes hernia repair, unspecified sinus surgery, and bilateral cataract surgery. ALLERGIES: She has reported allergies of clarithromycin, meloxicam, and sulfa. MEDICATIONS PRIOR TO ADMISSION: As listed. SOCIAL HISTORY: She lives with her mother. She does not smoke. She does not use alcohol. FAMILY HISTORY: Positive for coronary disease and hypertension. There is a family history of sudden in several uncles but this apparently was related to coronary disease. REVIEW OF SYSTEMS: Difficult to obtain directly from the patient due to communication difficulty. Review of systems is obtained primarily from the patient's mother who indicates she has had some tendency for shortness of breath when lying down at night. She has not had any cough. She has a history of gastroesophageal reflux for which she takes Carafate. There has been no melena or bright red blood per rectum. There has been no abdominal pain. Constitutional review of systems negative. Remainder of review of systems obtained from the mother negative with 14 total systems reviewed. PHYSICAL EXAMINATION: General: Reveals an obese middle-aged female with short stature and relatively short neck in no distress. Vital signs: Vital signs as recorded are stable. She is mildly hypertensive . Heart rate 100 and regular. HEENT: Extraocular movements appear intact. Mucous membranes are moist. Neck: Supple without venous distention and no carotid bruits. Chest: Clear to auscultation. Cardiac: Exam reveals a regular rate and rhythm with a grade 2 to grade 3/6 crescendo/decrescendo systolic murmur at the left upper sternal border. Gallop could not be appreciated. There is no rub. Second heart sound is prominent. Abdomen: Soft, nontender. Bowel sounds are normal. Extremities: Without edema and warm. There is no clubbing. Neurologic: She is alert and very responsive. Speech is fluent. She moves all 4 extremities equally well. Skin: Warm and dry. Psychiatric: Exam reveals her to be slightly anxious. ECG: ECG demonstrates sinus rhythm and incomplete right bundle-branch block. LABORATORY DATA: Noteworthy for a troponin of 0.3. D-dimer is normal. B-type natriuretic peptide level is normal.
--- NOTE | 2016-09-11 11:50 | CONSULTATION ---
DATE OF CONSULTATION: 09/11/2016 REQUESTING PHYSICIAN: Dr. Jorge. REASON FOR CONSULTATION: Respiratory failure and pulmonary nodule. HISTORY OF PRESENT ILLNESS: Ms. Valdivia is a 45-year-old white female with mental retardation, who is cared for by her mother, was initially evaluated by this practitioner 04/30/2016 and was diagnosed with chronic hypercapnic and acute hypoxemic respiratory failure. The patient has evidence of chronic hypoventilation with elevation of the right hemidiaphragm. Unfortunately, the patient's mother was convinced that she would not tolerate BiPAP. The patient also has a 2.5 cm masslike lesion in the right lower lobe. She has been followed in my office for this process. CT scan of the thorax performed 07/10/2016 revealed stability of this nodule measuring at 2.1 cm. Due to her mental retardation, her mother thought there would be significant difficulty in biopsying this lesion. Therefore, it is undergoing surveillance and she is scheduled to undergo another scan in October. Over the last couple of days, patient has had atypical chest pain and informed her mother that she thought she was going to . The patient was evaluated in the emergency room and she had an increase in troponin from 0.165 to 0.30 and it has subsequently normalized. By report, she has had a previous scan with a reversible defect. She is currently being evaluated by cardiology. A D-dimer was performed in the emergency room which was low at 0.11. An arterial blood gas was performed on supplemental oxygen which revealed a pH of 7.37, pCO2 of 62, PO2 of 82, which is similar to her previous arterial blood gases. PAST MEDICAL HISTORY: 1. Mental retardation. Previously described is functioning as a 3-year-old. 2. History of seizure disorder. 3. Asthma/cough-variant asthma.. 4. Diabetes mellitus. 5. Chronic elevation of the right hemidiaphragm. 6. Chronic hypoxemic and hypercapnic respiratory failure. 7. Gastroesophageal reflux disease. 8. Hypertension. 9. Significant knee and back arthritis without recent ambulation. 10. Hypothyroidism. 11. Status post cataract surgery. 12. Status post sinus surgery. SOCIAL HISTORY: Patient is a never smoker. No alcohol use. FAMILY HISTORY: Positive for strokes, diabetes, and unspecified cancers. PHYSICAL EXAMINATION: General: Reveals a pleasant and smiling white female who is currently undergoing an echocardiogram. Vital signs: BP 113/92, heart rate 89, respiration rate 18, oxygen saturation 100% on supplemental oxygen. HEENT: Pupils are equal and reactive. Oropharynx is clear. Neck: Supple. Chest: Reveals diminished breath sounds right base. Cardiac Exam: Regular rate. Normal S1, normal S2. Abdomen: Soft without hepatosplenomegaly. Extremities: Without edema. LABS: Arterial blood gas on 2 L per nasal cannula, pH 7.37, pCO2 of 62, PO2 of 82. Chest x-ray: Elevation of right hemidiaphragm with chronic atelectasis at the right base with mild cardiomegaly. No acute change. No change from 05/29/2016. IMPRESSION: This is a 45-year-old, never smoker, with mental retardation, chronic hypoxemic and hypercapnic respiratory failure with chronic elevation of the right hemidiaphragm, solitary pulmonary nodule in the right base which has been stable on short-term follow up, who presents with nonspecific chest pain and with the report of a sense of dying. D-dimer is low and presentation is therefore unlikely to be related to a pulmonary embolus. With positive stress test in the past, her symptom complex, and an elevation in her troponin, cardiac disease is suspected. RECOMMENDATIONS: 1. Continue oxygen for her chronic hypoxemic respiratory failure. 2. Continue observation for her chronic hypercapnic respiratory failure. I believe BiPAP will likely cause her additional physiologic stress. PLAN: 1. Continued serial followup of pulmonary nodule and if it demonstrates growth biopsy is anticipated but will be discussed at length with the family. 2. Continue cardiac evaluation as you are doing.
[2016-09-11] MEDS: ASPIRIN PO SCH (11:56)
[2016-09-11] MEDS: LOVENOX SUBQ SCH ×2 (11:56→20:47)
[2016-09-11] MEDS: MIRALAX PO SCH (11:56)
[2016-09-11] MEDS: NORVASC PO SCH (11:57)
[2016-09-11] MEDS: VITAMIN D PO SCH (11:57)
[2016-09-11] MEDS: FLONASE NAS SCH (11:57)
[2016-09-11] MEDS: PRILOSEC PO SCH (11:57)
[2016-09-11] MEDS: CELEXA PO SCH (11:57)
[2016-09-11] MEDS: SINGULAIR PO SCH (11:57)
--- NOTE | 2016-09-11 14:09 | PROGRESS NOTE ---
DATE: 09/11/2016 SUBJECTIVE: Patient, who is a poor historian, reported that she is having chest pain. Unable to provide more details about that symptom. OBJECTIVE: Vital Signs: Temperature 97.0 degrees, heart rate 84, respiratory rate 18, blood pressure 154/75, O2 saturation 95% on 2 L nasal cannula. General Examination: This is a 45-year- old female with history of mental retardation, lying in bed, in no acute distress. HEENT: Head is normocephalic, atraumatic. Anicteric sclerae and pale conjunctivae. Mucous membranes moist. Neck: Short. No JVD noted. No carotid bruit. No lymphadenopathy. No thyromegaly. Cardiovascular: S1 and S2 heard with strong systolic murmur in the left upper sternal border. Regular rate and rhythm. Respiratory: Clear bilaterally to auscultation. No work of breathing or using accessory muscles. Abdomen: Soft, nontender to palpation. Bowel sounds present. No organomegaly. Extremities: No clubbing, cyanosis, or edema. Peripheral pulses present in both legs. Neurological: Patient is nonverbal most of the time. Moves 4 extremities. LABORATORY DATA: White cell count 4.8, hemoglobin 9.9, hematocrit 31.5, platelets 246,000. BMP unremarkable, and troponins were initially 0.165, then go up to 0.306, and then go down to 0.13 at midnight, and today 0.051. ASSESSMENT: 1. Acute on chronic respiratory failure. 2. Acute hypercarbic respiratory failure. 3. Non ST-segment elevation myocardial infarction. 4. Hyperkalemia. 5. Chronic obstructive pulmonary disease. 6. Hypertension. 7. Diabetes mellitus type 2. 8. Pulmonary nodule. 9. Seizure disorder. PLAN: 1. Patient was admitted to the hospital because of complaining of shortness of breath. Here in the ER he was evaluated and found to have elevated troponins, and patient was complaining of chest pain. As per Cardiology evaluation, they are initially planning to do noninvasive study with cardiac CT. Also an echo was ordered but the result is pending at the time of the dictation. At this time the patient has been started on her home medications including aspirin. Also medication for blood pressure has been restarted as well. The patient has been started on beta-blockers. We will continue with the same management. 2. For seizure disorder and hyperlipidemia, we will continue with the same management. 3. For history of lung mass and for nodule and possible biopsy, Dr. Santiago has been consulted and we will see what he had to say. 4. Further recommendations as per clinical course of the patient.
[2016-09-11] MEDS: ASPIRIN EC PO SCH (18:17)
[2016-09-11] MEDS: LIPITOR PO SCH (20:46)
--- NOTE | 2016-09-11 20:55 | ECHO REPORT ---
ORDER DATE: 09/11/2016 STUDY: 2D echocardiogram REASON FOR STUDY: Dizziness, heart murmur, hypertension, hyperlipidemia. M-MODE MEASUREMENTS: Right ventricle: 2.3 Left ventricle end-diastole: 3.9 Left ventricle end-systole: 2.2 Posterior wall: 1.2 Interventricular septum: 1.2 Left atrium: 4.0 Aortic root: 2.5 SUMMARY OF 2-D IMAGIN. Left ventricular systolic function appears to be normal, ejection fraction is 66%. I do not see any evidence of wall motion abnormality. 2. Right ventricle is normal. 3. The atria appear to be normal. 4. Mitral valve looks normal. Color flow mapping indicates mild degree of regurgitation. 5. Pulse wave Doppler mitral inflow shows reversal of the E and the A-wave. 6. Tissue Doppler septum and mitral annulus averages 6.5 cm. 7. Pulse wave Doppler pulmonary venous flow is normal. There is no diastolic dysfunction. 8. Inferior vena cava is not dilated. 9. Pulmonary pressure estimated by the jet of tricuspid regurgitation within normal limits at 25 mmHg. 10. Pulmonic valve shows mild degree of regurgitation. 11. Aortic valve looks normal. Color flow mapping indicates a mild degree of regurgitation. There is no pericardial effusion, mass and no thrombus. CONCLUSIONS: In summary, this study shows: 1. Normal left ventricular systolic function. 2. Mild degree of aortic and mitral regurgitation. 3. No diastolic dysfunction. 4. Normal pulmonary pressure. Clinical correlation recommended.
[2016-09-12] MEDS: LOPRESSOR PO SCH ×3 (03:10→20:31)
[2016-09-12] MEDS: DUONEB (A & A) INH SCH ×6 (03:30→23:04)
[2016-09-12] MEDS: CARAFATE LIQUID PO SCH ×3 (06:11→20:30)
[2016-09-12] MEDS: SYNTHROID PO SCH (06:11)
[2016-09-12] MEDS: HUMALOG SUBQ SCH ×4 (06:12→20:31)
[2016-09-12] MEDS ORDERED: LOPRESSOR PO ONE ×2 (07:49→09:21)
[2016-09-12] MEDS: PRILOSEC PO SCH (08:13)
[2016-09-12] MEDS: ASPIRIN PO SCH (08:13)
[2016-09-12] MEDS: MIRALAX PO SCH (08:13)
[2016-09-12] MEDS: DEPAKOTE ER PO SCH ×2 (08:14→20:31)
[2016-09-12] MEDS: VITAMIN D PO SCH (08:14)
[2016-09-12] MEDS: CELEXA PO SCH (08:14)
[2016-09-12] MEDS: SINGULAIR PO SCH (08:14)
[2016-09-12] MEDS: NORVASC PO SCH (08:14)
[2016-09-12] MEDS: LOVENOX SUBQ SCH (08:14)
[2016-09-12] MEDS: TEGRETOL PO SCH ×2 (08:15→20:30)
[2016-09-12] MEDS: FLONASE NAS SCH (08:17)
[2016-09-12 10:05] LABS: MANUAL DIFF NEEDED? NO
[2016-09-12 10:10] LABS: BASO% 0.3 % (0.0-0.8); EOS# 0.05 X1000 (0.0-0.7); EOS% 1.4 % (0.0-10.0); HEMATOCRIT 31.6 % (37.0-47.0); LYMPH# 1.81 X1000 (1.2-3.4); LYMPH% 49.2 % (20.5-51.1); MCH 32.1 PG (27-31); MCHC 31.6 g/dL (33-37); MCV 101.3 FL (81-99); MONO# 0.36 X1000 (0.11-0.59); MONO% 9.8 % (1.7-9.3); MPV 10.8 FL (7.4-10.4); NEUT% 39.3 % (42.2-75.2); PLT 262 X1000 (130-400); RBC 3.12 XMIL (4.2-5.4)
[2016-09-12 10:22] LABS: AGAP 10; BUN 25 mg/dL (8-22); CALCIUM 8.8 mg/dL (8.8-10.2); CHLORIDE 96 mmol/L (98-107); COSMO 283; POTASSIUM 4.5 mmol/L (3.5-5.1); SODIUM 140 mmol/L (136-145); TCO2 34 mmol/L (25-35)
--- NOTE | 2016-09-12 12:39 | PROGRESS NOTE ---
DATE: 09/12/2016 SUBJECTIVE: Patient is feeling fine. Denies any chest pain today. According to the power tool repair technician and mother who is at bedside, patient is doing okay. OBJECTIVE: Vital Signs: Temperature 98.1 degrees, heart rate 81, respiratory rate 16, blood pressure 144/63, O2 saturation 98% on 2 L nasal cannula. General Examination: This is a 45-year- old female with a history of mental retardation lying in bed, in no acute distress. HEENT: Head is normocephalic, atraumatic. Anicteric sclerae and pale conjunctivae. Mucous membranes moist. Neck: Supple. No JVD noted. No carotid bruits. No lymphadenopathy. No thyromegaly. Cardiovascular: S1, S2 heard. Strong systolic murmur in the left upper sternal border with no radiation. Regular rate and rhythm. Respiratory: Clear bilaterally to auscultation. No work of breathing or using accessory muscles. Abdomen: Soft, nontender to palpation. Bowel sounds present. No organomegaly. Extremities: No clubbing, cyanosis, or edema. Peripheral pulses present in both legs. Neurological: Patient is nonverbal most of the time. Moves 4 extremities. LABORATORY DATA: White cell count 3.68, with hemoglobin 10.0, hematocrit 31.6, platelets 262,000. BMP unremarkable. ASSESSMENT AND PLAN: 1. Acute hypercapnic respiratory failure. 2. Non ST-segment elevation myocardial infarction. 3. Hyperkalemia. 4. Chronic obstructive pulmonary disease. 5. Hypertension. 6. Diabetes mellitus type 2. 7. Pulmonary nodules. 8. Seizure disorder. Patient admitted to the hospital mainly because of chest discomfort and troponins went up at admission and then finally started going down. At this time Cardiology has been consulted and apparently because mother does not want to be so aggressive they prefer to check the heart with a CT. That exam is going to be done today. We will see what Cardiology has to say. Regarding COPD, we will continue with the breathing treatments. For hypertension will continue home medications as well as for seizure disorder. We will see what is the next step in the management of this patient as per Cardiology recommendations.
[2016-09-12] MEDS: ASPIRIN EC PO SCH (14:21)
[2016-09-12] MEDS: LIPITOR PO SCH (20:31)
[2016-09-12] MEDS: VALIUM PO SCH (20:31)
[2016-09-12] MEDS: TYLENOL PO PRN (21:26)
[2016-09-13] MEDS: CARAFATE LIQUID PO SCH ×3 (02:33→17:18)
[2016-09-13] MEDS: DUONEB (A & A) INH SCH ×4 (03:20→16:18)
[2016-09-13 05:32] LABS: MANUAL DIFF NEEDED? NO
[2016-09-13] MEDS: TYLENOL PO PRN (05:36)
[2016-09-13 05:40] LABS: BASO% 0.2 % (0.0-0.8); EOS# 0.07 X1000 (0.0-0.7); EOS% 1.5 % (0.0-10.0); HEMATOCRIT 32.5 % (37.0-47.0); HEMOGLOBIN 10.1 g/dL (12.0-16.0); LYMPH# 2.47 X1000 (1.2-3.4); LYMPH% 51.9 % (20.5-51.1); MCH 31.8 PG (27-31); MCHC 31.1 g/dL (33-37); MCV 102.2 FL (81-99); MONO# 0.56 X1000 (0.11-0.59); MONO% 11.8 % (1.7-9.3); MPV 10.2 FL (7.4-10.4); NEUT% 34.6 % (42.2-75.2); PLT 248 X1000 (130-400); RBC 3.18 XMIL (4.2-5.4)
[2016-09-13 05:55] LABS: AGAP 9; BUN 33 mg/dL (8-22); CALCIUM 8.6 mg/dL (8.8-10.2); CHLORIDE 95 mmol/L (98-107); COSMO 287; POTASSIUM 4.7 mmol/L (3.5-5.1); SODIUM 140 mmol/L (136-145); TCO2 36 mmol/L (25-35)
[2016-09-13] MEDS: SYNTHROID PO SCH (05:59)
[2016-09-13] MEDS: HUMALOG SUBQ SCH ×3 (06:30→16:55)
[2016-09-13] MEDS: SINGULAIR PO SCH (09:55)
[2016-09-13] MEDS: LOPRESSOR PO SCH ×2 (09:55→18:15)
[2016-09-13] MEDS: PRILOSEC PO SCH (09:55)
[2016-09-13] MEDS: MIRALAX PO SCH (09:56)
[2016-09-13] MEDS: DEPAKOTE ER PO SCH (09:56)
[2016-09-13] MEDS: CELEXA PO SCH (09:56)
[2016-09-13] MEDS: TEGRETOL PO SCH (09:56)
[2016-09-13] MEDS: ASPIRIN PO SCH (09:56)
[2016-09-13] MEDS: VITAMIN D PO SCH (09:56)
[2016-09-13] MEDS: NORVASC PO SCH (09:56)
[2016-09-13] MEDS: FLONASE NAS SCH (09:59)
--- NOTE | 2016-09-13 14:19 | PROGRESS NOTE ---
DATE: 09/13/2016 SUBJECTIVE: Patient is feeling fine. She is still complaining of chest pain. According to the mother the patient has been okay and not complaining of any shortness of breath. OBJECTIVE: Vital Signs: Temperature 98.2 degrees, heart rate 78, respiratory rate 16, blood pressure 120/58, O2 saturation 100% 2 L nasal cannula. General Examination: This is a 45-year- old female with history of mental retardation lying in bed, in no acute distress. HEENT: Head is normocephalic, atraumatic. Anicteric sclerae and pale conjunctivae. Mucous membranes moist. Neck: Supple. No JVD noted. No carotid bruits. No lymphadenopathy. No thyromegaly. Cardiovascular: S1, S2 heard. Strong systolic murmur in the left upper sternal border with no radiation. Regular rate and rhythm. Respiratory: Clear bilaterally to auscultation. No work of breathing or using accessory muscles. Abdomen: Soft, nontender to palpation. Bowel sounds present. No organomegaly. Extremities: No clubbing, cyanosis, or edema. Peripheral pulses present in both legs. Neurological: Patient is verbal at times. Moves 4 extremities. LABORATORY DATA: White cell count 476, hemoglobin 10.1, hematocrit 32.5, platelets 248,000. BMP unremarkable. ASSESSMENT AND PLAN: 1. Acute hypercapnic respiratory failure. 2. Non ST-segment elevation myocardial infarction. 3. Hyperkalemia. 4. COPD on home oxygen. 5. Hypertension. 6. Diabetes mellitus type 2. 7. Pulmonary nodule. 8. Seizure disorder. PLAN: Patient admitted to the hospital because of chest discomfort and when we checked troponins they went up at admission and finally they started going down. Cardiology has been consulted. Initially the left heart catheterization was considered but mother initially refused. We have talked with the mother and she thinks that this patient is going to need whatever we suggest. Initially Cardiology planned to do a CT of the chest to evaluate for cardiac calcifications. That exam is not reported yet. In any case, Cardiology is following this patient. For COPD she is on home medications as needed. For pulmonary nodule Dr. Santiago has been consulted and they are not planning to do any present biopsy at least while the patient is in here. For the rest of medical conditions patient will continue with home medications. We will see what Cardiology has to say tomorrow regarding the management of this patient depending course of the CT of the chest.
[2016-09-13] MEDS: ASPIRIN EC PO SCH (14:38)
[2016-09-13 15:51] VITALS: BP 152/80
--- NOTE | 2016-09-16 22:22 | Extremity Venous Study ---
PROCEDURE NAME: Venous U/S Bilateral Legs - 09/11/2016 STUDY: Bilateral lower extremity venous duplex and color flow imaging study using the [employer] Vivid E9 ultrasound System with a 9 L-D transducer on Chichi Valdivia. REFERRING PHYSICIANS: Kenny Jorge M.D., DATE: 45-year-old female. Fire Dispatcher: Stephenie Santana RVT. INDICATIONS: 1. Shortness of breath, ICD-10, R06.02. 2. Elevated D-dimer, ICD-10, R94.2. FINDINGS: Right common femoral vein and its branches, deep and superficial femoral veins were satisfactorily imaged. They had flow through them and were compressible. Right popliteal vein and deep veins below the right knee were all compressible and had flow through them. The superficial veins of the right lower extremity were compressible throughout their length. The left common femoral vein and its branches, deep and superficial femoral veins were also satisfactorily imaged. They had flow through them and were compressible. Left popliteal vein and deep veins below the left knee were all compressible and had flow through them. Superficial veins of the left lower extremity were compressible throughout their length. INTERPRETATION: No evidence of acute deep or superficial venous thrombosis of the bilateral lower extremities.
--- NOTE | 2016-09-17 14:04 | Diag Imaging Result Document ---
PROCEDURE NAME: HEART WITH CALCIUM SCORING - 09/12/2016 CT CALCIUM SCORING: Exam is submitted for dictation on 09/17/2016. FINDINGS: The total calcium score is 162. This is in the moderate plaque burden range of 101- 400. Visualized portions of the lungs near the heart show multiple calcifications at the base of the right thorax, similar to that seen on the 07/10/2016 CT thorax. There is also some atelectasis or scarring at the right lung base, similar to that exam. The pulmonary nodule which was seen at the posterolateral right base on the previous exam is not evaluated on this exam, as it is not in the field of view of this exam. IMPRESSION: Total calcium score of 162. This is in the moderate plaque burden range of 101-400. [facility]
--- NOTE | 2016-09-25 20:38 | DISCHARGE SUMMARY ---
ADMISSION DATE: 09/10/2016 DISCHARGE DATE: 09/13/2016 DISCHARGE DIAGNOSES: 1. Chest pain. 2. Acute hypercapnic respiratory failure. 3. Hyperkalemia. 4. Chronic obstructive pulmonary disease. 5. Hypertension. 6. Diabetes mellitus type 2. 7. Pulmonary nodules. 8. Seizure disorder. CONSULTATIONS: 1. Dr. Skip Santiago from Pulmonary. 2. Dr. Jeremias Seymour from Cardiology. PROCEDURES: Echocardiogram showed normal left ventricular function with ejection fraction of 66% and normal left ventricular systolic function, mild degree of aortic and mitral regurgitation. No diastolic dysfunction. Normal pulmonary pressure. Cardiac CT scoring was attempted twice. The total calcium score was 162 I am told. It was not completely accurate because the patient was not able to be quiet during the exam. Neck CT showed no acute disease. HOSPITAL COURSE: This is a 45-year-old female with history of congenital mental retardation, COPD on home oxygen, hypertension, diabetes, pulmonary nodules who presented to the Emergency Department complaining of shortness of breath over the last few days. The patient is unable to give any type medical history given her mental status. Family is at bedside to give a detailed medical history. Most of the time, patient is wheelchair bound and sometimes she gets up and tries to walk occasionally. The patient was brought here to the hospital for further evaluation and treatment. In the ER, she was noted to have in the EKG T wave inversions and troponins were positive, so Cardiology was consulted. Initially when they approached patient and family, they were more reluctant to do any aggressive procedures so the 1st choice for this patient was to have a CT of the chest to check coronary calcifications and because this study requires patient to be quiet, because of basal medical condition, patient with mental retardation, she was not able to stay calm, so finally on agreement with the family we decided to not proceed with anymore aggressive workup because in any case, if the patient needs any further procedures, family was not okay, so the patient was discharged and medical treatment was optimized and patient was discharged in stable condition. PHYSICAL EXAMINATION: Vitals: Temperature 98.1 degrees, heart rate 76, respiratory rate 18, blood pressure 152/80, O2 saturation 97% on room air. General: This is a 46- year-old female lying in bed, in no acute distress. HEENT: Head is normocephalic, atraumatic. Anicteric sclerae and pale conjunctivae. Mucous membranes moist. Neck: Supple. No JVD noted. No carotid bruits. No lymphadenopathy. No thyromegaly. Cardiovascular: S1, S2 heard with a strong systolic murmur in the left upper sternal border with no radiation. Regular rate and rhythm. Respiratory: Clear bilaterally to auscultation. No work of breathing or using accessory muscles. Abdomen: Soft, nontender to palpation. Bowel sounds present. No organomegaly. Extremities: No clubbing, cyanosis, or edema. Peripheral pulses present in both legs. Neurological: Patient does not follow commands. Apparently, she moves 4 extremities. DISPOSITION: To home to self-care. FOLLOWUP: Dr. Philippe Heller in 1 month. LIST OF MEDICATIONS: 1. Metoprolol 25 mg p.o. q.12 hours. 2. Albuterol by inhalation 4 times per day as needed for shortness of breath. 3. Amlodipine 5 mg 1 tablet p.o. daily. 4. Aspirin 81 mg p.o. daily. 5. Carbamazepine 400 mg p.o. b.i.d. 6. Cholecalciferol 1 capsule p.o. daily. 7. Citalopram 20 mg 1 tablet p.o. daily. 8. Diazepam 5 mg 1 tablet p.o. bedtime. 9. Depakote ER 2 tablets p.o. b.i.d. 10. Flonase 2 sprays intranasal daily. 11. Lisinopril 5 mg 1 tablet p.o. daily. 12. Levothyroxine 25 mcg p.o. daily. 13. Metformin 500 mg p.o. daily. 14. Singular 10 mg 1 tablet p.o. daily. 15. Omeprazole 40 mg 1 tablet p.o. daily. 16. MiraLAX as needed as needed for constipation. 17. Simvastatin 20 mg p.o. at bedtime. 18. Sucralfate 1 g every 6 hours. DISCHARGE TIME: 35 minutes MTDD
== END 2016-09-13 18:30 | disposition home health service (06) | DRG 313 ==
LOC: EDBD → ED 13:29 → EDIPHOLD 19:56 → 3S 09-11 09:01 → UNDODISIN 09-11 09:27 → 3S 09-11 16:53
PROVIDERS: ATTEND Internal Medicine
DX: R07.89 Other chest pain (principal); J96.21 Acute and chronic respiratory failure with hypoxia; Z99.81 Dependence on supplemental oxygen; I10 Essential (primary) hypertension; E11.9 Type 2 diabetes mellitus without complications; D64.9 Anemia, unspecified; J96.22 Acute and chronic respiratory failure with hypercapnia; J98.11 Atelectasis; J44.9 Chronic obstructive pulmonary disease, unspecified; E87.5 Hyperkalemia; F79 Unspecified intellectual disabilities; T46.4X5A Adverse effect of angiotensin-converting-enzyme inhibitors, initial encounter; E03.9 Hypothyroidism, unspecified; E78.5 Hyperlipidemia, unspecified; K21.9 Gastro-esophageal reflux disease without esophagitis; R91.1 Solitary pulmonary nodule; G40.909 Epilepsy, unspecified, not intractable, without status epilepticus; J98.6 Disorders of diaphragm; F40.240 Claustrophobia; E66.9 Obesity, unspecified; Z68.25 Body mass index [BMI] 25.0-25.9, adult; J45.991 Cough variant asthma; M13.0 Polyarthritis, unspecified; Z82.49 Family history of ischemic heart disease and other diseases of the circulatory system; Z82.41 Family history of sudden cardiac death; Z83.3 Family history of diabetes mellitus; Z82.3 Family history of stroke; Z80.8 Family history of malignant neoplasm of other organs or systems; Z79.82 Long term (current) use of aspirin; Z79.899 Other long term (current) drug therapy; Z79.84 Long term (current) use of oral hypoglycemic drugs; Z79.51 Long term (current) use of inhaled steroids
CPT/HCPCS: 70360; 70491; 71020; 80048; 80053; 80061; 80156; 80165; 81001; 82272; 82550; 82607; 82746; 82805; 82948; 83036; 83735; 83880; 84132; 84443; 84484; 85025; 85027; 85379; 85610; 85730; 87081; 87430; 87804; 93005; 93306; 93970; 94640; 94761; 96365; 96372; 96375; J0610; J1650; J1815; J7030; Q9966